=== PATIENT | female | born 1945 | race Caucasian/White ===

== ENCOUNTER → 2018-01-23 15:11 | Outpatient (CLI) | payer MEDICARE, OTHER, SELFPAY ==
--- NOTE | 2018-01-23 | DI.MG.S_ITS ---
BILATERAL DIGITAL SCREENING MAMMOGRAM 3D/2D WITH CAD: 01/23/2018 CLINICAL: Routine screening. Family history of breast cancer. Comparison is made to exams dated: 12/27/2016 mammogram, 12/06/2015 mammogram, and 11/16/2014 mammogram - [facility]. The tissue of both breasts is extremely dense, which lowers the sensitivity of mammography. Current study was also evaluated with a Computer Aided Detection (CAD) system. No significant masses, calcifications, or other findings are seen in either breast. There has been no significant interval change. IMPRESSION: NEGATIVE There is no mammographic evidence of malignancy. A 1 year screening mammogram is recommended. This exam was interpreted at Station ID: [id number]. NOTE: For mammograms, a report in lay terms will be sent to the patient. Approximately 15% of breast malignancies will not be visualized mammographically. In the management of a palpable breast mass, a negative mammogram must not discourage biopsy of a clinically suspicious lesion. Electronically Signed By: Chelo márquez/teresa:01/23/2018 15:37:21 letter sent: Normal Exam ACR BI-RADS Category 1: Negative [id number]
== END ==
PROVIDERS: PCP Family Medicine; Visit Provider Family Medicine
DX: Z12.31 Encounter for screening mammogram for malignant neoplasm of breast (principal); Z80.3 Family history of malignant neoplasm of breast
CPT/HCPCS: 77063; 77067

== ENCOUNTER → 2018-12-16 07:38 | Outpatient (CLI) | payer MEDICARE, OTHER, SELFPAY ==
[2018-12-16 08:45] LABS: Add Manual Diff / Slide Review NO; Basophils Absolute Auto 0 /uL (0-100); Basophils Percent Auto 0.7 % (0-2); Eosinophils Absolute Auto 100 /uL (0-450); Eosinophils Percent Auto 2.4 % (2-4); Hematocrit 39.3 % (36-46); Hemoglobin 13.8 g/dL (12.0-16.0); Lymphocytes Absolute Auto 1600 /uL (1100-4500); Lymphocytes Percent Auto 45.9 % (25-40); Mean Corpuscular Hemoglobin 31.4 PG (26-34); Mean Corpuscular Volume 89.7 fL (80-100); Monocytes Absolute Auto 400 /uL (0-900); Monocytes Percent Auto 11.5 % (3-14); Neutrophils Absolute Auto 1400 /uL (1500-7000); Neutrophils Percent Auto 39.5 % (50-75); Platelet Count 200 X10^3/uL (150-400); Red Blood Cell Count 4.39 X10^6/uL (4.0-5.2); Red Cell Distribution Width 13.1 % (11.6-14.8); White Blood Cell Count 3.5 X10^3/uL (4.5-11.0)
[2018-12-16 08:55] LABS: Alanine Aminotransferase 14 IU/L (9-52); Albumin 4.3 g/dL (3.5-5.0); Albumin Globulin Ratio 1.5 (1.0-2.8); Alkaline Phosphatase 53 U/L (38-126); Aspartate Aminotransferase 27 IU/L (14-36); BUN Creatinine Ratio 22.9 (6-22); Bilirubin Total 1.3 mg/dL (0.2-1.3); Blood Urea Nitrogen 16 mg/dL (7-17); Calcium 9.6 mg/dL (8.4-10.2); Carbon Dioxide 32 mmol/L (22-32); Chloride 104 mmol/L (98-107); Cholesterol 194 mg/dL (140-199); Estimated Glomerular Filt Rate > 60.0 mL/min (>60); Globulin 2.9 g/dL (1.7-4.1); Glucose 86 mg/dL (80-110); HDL Cholesterol 64 mg/dL (40-60); HEMOLYSIS < 15 (0-50); LDL Cholesterol Calculated 110 mg/dL (<100); Sodium 141 mmol/L (137-145); Total Protein 7.2 g/dL (6.3-8.2); Triglycerides 100 mg/dL (35-150)
[2018-12-16 09:48] LABS: HEMOLYSIS 18 (0-50); Iron 122 ug/dL (37-170)
[2018-12-16 10:00] LABS: Percent Iron Saturation 50 % (15-50); Total Iron Binding Capacity 245 ug/dL (265-497); Transferrin 204 mg/dL (206-381)
== END ==
PROVIDERS: PCP Family Medicine; Visit Provider Family Medicine
DX: E78.5 Hyperlipidemia, unspecified (principal); G31.84 Mild cognitive impairment of uncertain or unknown etiology; M81.0 Age-related osteoporosis without current pathological fracture; Z86.2 Personal history of diseases of the blood and blood-forming organs and certain disorders involving the immune mechanism
CPT/HCPCS: 36415; 80053; 80061; 82728; 83540; 83550; 85025

== ENCOUNTER → 2019-02-12 13:57 | Outpatient (CLI) | payer MEDICARE, OTHER, SELFPAY ==
[2019-02-12 14:26] LABS: Add Manual Diff / Slide Review NO; Basophils Absolute Auto 0 /uL (0-100); Basophils Percent Auto 0.2 % (0-2); Eosinophils Absolute Auto 0 /uL (0-450); Eosinophils Percent Auto 0.1 % (2-4); Hematocrit 39.5 % (36-46); Hemoglobin 13.3 g/dL (12.0-16.0); Lymphocytes Absolute Auto 1400 /uL (1100-4500); Lymphocytes Percent Auto 13.4 % (25-40); Mean Corpuscular HGB Conc 33.7 % (30-36); Mean Corpuscular Hemoglobin 30.7 PG (26-34); Monocytes Absolute Auto 700 /uL (0-900); Monocytes Percent Auto 7.1 % (3-14); Neutrophils Absolute Auto 8100 /uL (1500-7000); Neutrophils Percent Auto 79.2 % (50-75); Platelet Count 223 X10^3/uL (150-400); Red Blood Cell Count 4.34 X10^6/uL (4.0-5.2); Red Cell Distribution Width 13.7 % (11.6-14.8); White Blood Cell Count 10.2 X10^3/uL (4.5-11.0)
[2019-02-12 14:49] LABS: Erythrocyte Sedimentation Rate 39 MM/HR (0-20)
[2019-02-12 15:13] LABS: Alanine Aminotransferase 20 IU/L (9-52); Albumin 4.6 g/dL (3.5-5.0); Albumin Globulin Ratio 1.5 (1.0-2.8); Alkaline Phosphatase 68 U/L (38-126); Aspartate Aminotransferase 26 IU/L (14-36); BUN Creatinine Ratio 22.9 (6-22); Bilirubin Total 1.9 mg/dL (0.2-1.3); Blood Urea Nitrogen 16 mg/dL (7-17); C-Reactive Protein Quant 6.3 mg/dL (<1.0); Carbon Dioxide 29 mmol/L (22-32); Chloride 100 mmol/L (98-107); Estimated Glomerular Filt Rate > 60.0 mL/min (>60); Glucose 89 mg/dL (80-110); HEMOLYSIS < 15 (0-50); Sodium 139 mmol/L (137-145); Total Protein 7.6 g/dL (6.3-8.2)
[2019-02-12 15:38] LABS: TSH w/ Reflex to FT4 0.62 uIU/mL (0.47-4.68)
== END ==
PROVIDERS: PCP Family Medicine; Visit Provider Family Medicine
DX: R50.9 Fever, unspecified (principal)
CPT/HCPCS: 36415; 80053; 84443; 85025; 85651; 86140

== ENCOUNTER → 2019-02-17 10:40 | Outpatient (CLI) | payer MEDICARE, OTHER, SELFPAY ==
--- NOTE | 2019-02-17 | DI.MG.S_ITS ---
BILATERAL DIGITAL SCREENING MAMMOGRAM 3D/2D WITH CAD: 02/17/2019 CLINICAL: Routine screening. Family history of breast cancer. Comparison is made to exams dated: 01/23/2018 mammogram, 12/27/2016 mammogram, and 12/06/2015 mammogram - [facility]. The tissue of both breasts is extremely dense, which lowers the sensitivity of mammography. Current study was also evaluated with a Computer Aided Detection (CAD) system. No significant masses, calcifications, or other findings are seen in either breast. There has been no significant interval change. IMPRESSION: NEGATIVE There is no mammographic evidence of malignancy. A 1 year screening mammogram is recommended. This exam was interpreted at Station ID: [id number]. NOTE: For mammograms, a report in lay terms will be sent to the patient. Approximately 15% of breast malignancies will not be visualized mammographically. In the management of a palpable breast mass, a negative mammogram must not discourage biopsy of a clinically suspicious lesion. Electronically Signed By: Ray wills/teresa:02/17/2019 15:27:45 letter sent: Normal Exam ACR BI-RADS Category 1: Negative [id number]
== END ==
PROVIDERS: PCP Family Medicine; Visit Provider Family Medicine
DX: Z13.21 Encounter for screening for nutritional disorder (principal); Z80.3 Family history of malignant neoplasm of breast
CPT/HCPCS: 77063; 77067

== ENCOUNTER → 2019-03-19 12:38 | Outpatient (CLI) | payer MEDICARE, OTHER, SELFPAY ==
[2019-03-19 13:20] LABS: Add Manual Diff / Slide Review NO; Basophils Absolute Auto 0 /uL (0-100); Basophils Percent Auto 0.5 % (0-2); Eosinophils Absolute Auto 0 /uL (0-450); Eosinophils Percent Auto 0.2 % (2-4); Hematocrit 41.4 % (36-46); Hemoglobin 13.7 g/dL (12.0-16.0); Lymphocytes Absolute Auto 1200 /uL (1100-4500); Lymphocytes Percent Auto 19.5 % (25-40); Mean Corpuscular HGB Conc 33.1 % (30-36); Mean Corpuscular Hemoglobin 30.3 PG (26-34); Mean Corpuscular Volume 91.5 fL (80-100); Monocytes Absolute Auto 300 /uL (0-900); Monocytes Percent Auto 4.6 % (3-14); Neutrophils Absolute Auto 4700 /uL (1500-7000); Neutrophils Percent Auto 75.2 % (50-75); Platelet Count 253 X10^3/uL (150-400); Red Blood Cell Count 4.52 X10^6/uL (4.0-5.2); Red Cell Distribution Width 13.7 % (11.6-14.8); White Blood Cell Count 6.3 X10^3/uL (4.5-11.0)
[2019-03-19 13:33] LABS: Erythrocyte Sedimentation Rate 4 MM/HR (0-20)
[2019-03-19 13:42] LABS: Creatine Kinase 45 U/L (30-135)
[2019-03-19 13:47] LABS: C-Reactive Protein Quant < 0.5 mg/dL (<1.0)
[2019-03-22 17:09] LABS: Hepatitis B Surface Antigen NEGATIVE s/c (NEGATIVE)
== END ==
PROVIDERS: PCP Family Medicine; Visit Provider Family Medicine
DX: M35.3 Polymyalgia rheumatica (principal)
CPT/HCPCS: 36415; 82550; 85025; 85651; 86140; 87340

== ENCOUNTER → 2019-04-07 10:02 | Outpatient (CLI) | payer MEDICARE, OTHER, SELFPAY ==
[2019-04-07 11:50] LABS: Hep C Virus Ab w/Reflex Quant NEGATIVE s/c (NEGATIVE)
== END ==
PROVIDERS: PCP Family Medicine; Visit Provider Family Medicine
DX: M35.3 Polymyalgia rheumatica (principal)
CPT/HCPCS: 36415; 86803

== ENCOUNTER → 2019-09-08 09:32 | Outpatient (CLI) | payer MEDICARE, OTHER, SELFPAY ==
[2019-09-08 10:44] LABS: Add Manual Diff / Slide Review NO; Basophils Absolute Auto 0 /uL (0-100); Basophils Percent Auto 0.6 % (0-2); Eosinophils Absolute Auto 0 /uL (0-450); Eosinophils Percent Auto 0.9 % (2-4); Hematocrit 41.6 % (36-46); Hemoglobin 13.7 g/dL (12.0-16.0); Lymphocytes Absolute Auto 1700 /uL (1100-4500); Lymphocytes Percent Auto 45.4 % (25-40); Mean Corpuscular HGB Conc 32.9 % (30-36); Mean Corpuscular Volume 91.3 fL (80-100); Monocytes Absolute Auto 300 /uL (0-900); Monocytes Percent Auto 8.9 % (3-14); Neutrophils Absolute Auto 1600 /uL (1500-7000); Neutrophils Percent Auto 44.2 % (50-75); Platelet Count 230 X10^3/uL (150-400); Red Blood Cell Count 4.56 X10^6/uL (4.0-5.2); Red Cell Distribution Width 13.6 % (11.6-14.8); White Blood Cell Count 3.7 X10^3/uL (4.5-11.0)
[2019-09-08 11:02] LABS: Alanine Aminotransferase 16 IU/L (<35); Albumin 4.6 g/dL (3.5-5.0); Albumin Globulin Ratio 1.5 (1.0-2.8); Alkaline Phosphatase 48 U/L (38-126); Aspartate Aminotransferase 29 IU/L (14-36); Bilirubin Total 1.3 mg/dL (0.2-1.3); Blood Urea Nitrogen 20 mg/dL (7-17); Calcium 10.1 mg/dL (8.4-10.2); Carbon Dioxide 30 mmol/L (22-32); Chloride 103 mmol/L (98-107); Estimated Glomerular Filt Rate > 60.0 mL/min (>60); Glucose 106 mg/dL (80-110); HEMOLYSIS < 15 (0-50); Potassium 4.5 mmol/L (3.4-5.1); Sodium 139 mmol/L (137-145); Total Protein 7.6 g/dL (6.3-8.2)
== END ==
PROVIDERS: PCP Family Medicine; Referring Provider Family Medicine; Visit Provider Family Medicine
DX: M31.6 Other giant cell arteritis (principal); M35.3 Polymyalgia rheumatica; Z86.2 Personal history of diseases of the blood and blood-forming organs and certain disorders involving the immune mechanism
CPT/HCPCS: 36415; 80053; 85025

== ENCOUNTER 2019-10-23 08:04 | Emergency (ER) | payer MEDICARE, OTHER, SELFPAY ==
[2019-10-23 08:06] VITALS: BP 140/76; PULSE 62; RESP 18; TEMP 36.8; O2SAT 99; BMI 19.7
--- NOTE | 2019-10-23 08:32 | DI.CT.S_ITS ---
PROCEDURE: CT ABDOMEN PELVIS W CON INDICATIONS: abd pain TECHNIQUE: After the administration of oral and intravenous contrast, 5 mm thick sections acquired from the diaphragms to the symphysis. 5 mm thick coronal and sagittal reformats were performed. For radiation dose reduction, the following was used: automated exposure control, adjustment of mA and/or kV according to patient size. COMPARISON: [facility], CT, ABDOMEN/PELVIS WITH CONTRAST, 08/22/2010, 11:36. FINDINGS: Image quality: Diagnostic. ABDOMEN: Lung bases: Lung bases are clear. Heart size is normal. Solid organs: The liver is normal in size. There is a small area of low attenuation that has a thick appearance and is located within the left hepatic lobe at the level of the falciform ligament, most likely representing a small area of fatty infiltration. No intrahepatic or extrahepatic biliary dilatation is identified. The portal vein is patent. The pancreas is within normal limits. However, there is mild prominence of the main pancreatic duct, which is similar to the previous examination. No definite lesions are appreciated. No surrounding inflammation is evident. The adrenals and spleen are within normal limits. The kidneys are normal in size. There is prominence of the bilateral renal collecting systems and proximal ureters. However, the more distal aspects of the ureters are nondilated. No obvious renal calculi are evident. Peritoneum and bowel: Prominence of the wall of the stomach probably is exaggerated by decompression. There is also prominence of the wall of the duodenum and the proximal aspects of the jejunum with a few small bowel loops within the left upper quadrant noted to be borderline prominent in size measuring up to 2.7 cm in diameter (image 41, series 2). A moderate amount of stool is identified throughout the colon. There is extensive colonic diverticulosis. There is questionable edema within the mesentery adjacent to the region of sigmoid diverticulosis. However, there is bowel is not well evaluated without intraluminal contrast. Previously noted area of wall thickening involving the descending colon is not readily apparent on the current study. There is no free fluid, loculated fluid collection, or free air. Nodes and vessels: No retroperitoneal or mesenteric adenopathy. Aorta and inferior vena cava are normal in caliber. Aortic atherosclerosis is present. A retroaortic left renal vein is incidentally noted. Bones: No acute fracture or suspicious osseous lesion is evident. PELVIS: Genitourinary: Bladder wall thickness is normal. Miscellaneous: No inguinal hernias or adenopathy. No free fluid or loculated fluid collections are evident. The uterus is surgically absent. The ovaries are not identified and may also be surgically absent. Bones: No suspicious bony lesions. No acute pelvic fractures are identified. IMPRESSION: 1. Wall thickening of the stomach and proximal small bowel is nonspecific and may be exaggerated by incomplete distention. However, these findings are suspicious for gastroenteritis and clinical correlation is recommended. 2. There may be focal ileus within the small bowel loops of the left upper quadrant. There is no bowel obstruction. 3. Extensive colonic diverticulosis with questionable edema of the mesentery of the distal colon is nonspecific and probably within normal limits. Clinical correlation to exclude early diverticulitis is recommended. 3. Mild prominence of the main pancreatic duct is similar to the exam from 2011 and probably related to a benign process. No definitive pancreatic mass is evident. Dictated by: Dany Colon M.D. on 10/23/2019 at 8:23 Approved by: Dany Colon M.D. on 10/23/2019 at 8:30
--- NOTE | 2019-10-23 08:39 | ED_ITS ---
HPI - Abdominal Pain General Chief Complaint: Abdominal Pain Stated Complaint: chronic Diverticulitis Time Seen by Provider: 10/23/19 08:17 Source: patient and family Mode of arrival: Ambulatory Limitations: no limitations History of Present Illness HPI narrative: Patient here for complaints 2 weeks lower abdominal achy pain 08/30. Constant. Does not radiate. No nausea or vomiting. No diarrhea. Last bowel movement 1 week ago. During this time she did have black stools. No bright red blood per rectum. No dizziness no dyspnea no palpitations no chest pain no back pain no urinary complaints. Never been admitted for diverticulitis in the past. Last colonoscopy about 3 years ago. History of colon polyps. No weight loss or night sweats. Denies any epigastric pain. Pain is bilateral lower abdomen. She did take home antibiotic that was left over, Flagyl and Cipro for 1 week at the beginning. Has been off these medications for the past 1 week. Patient does take daily baby aspirin Related Data Home Medications Medication Instructions Recorded Confirmed aspirin 81 mg tablet,delayed 81 mg PO DAILY 09/23/18 10/23/19 release psyllium husk PO 09/23/18 04/08/19 vitamin B complex 1 tab PO DAILY 09/23/18 04/08/19 Previous Rx's Medication Instructions Recorded donepezil 10 mg tablet 10 mg PO BEDTIME #90 tab 04/22/19 simvastatin 5 mg tablet 5 mg PO HS #90 tab 04/22/19 trazodone 50 mg tablet 25 mg PO BEDTIME PRN #30 tab 04/22/19 ciprofloxacin HCl 500 mg tablet 500 mg PO BID #14 tab 07/12/19 metronidazole 500 mg tablet 500 mg PO Q8H #21 tab 07/12/19 ciprofloxacin HCl [Cipro] 500 mg PO BID #14 tab 10/23/19 metronidazole [Flagyl] 500 mg PO TID #21 tab 10/23/19 Allergies Allergy/AdvReac Type Severity Reaction Status Date / Time amoxicillin [AMOXICILLIN] Allergy Mild HIVES Verified 10/23/19 08:19 clavulanic acid Allergy Mild HIVES Verified 10/23/19 08:19 [CLAVULANIC ACID] Penicillins Allergy Hives Verified 10/23/19 08:19 Review of Systems Review of Systems Narrative: GENERAL: Denies chills, fatigue, malaise, fever, sweats. HEENT: Denies sinus pain, ear pain, sore throat, difficulty swallowing, dizziness. RESPIRATORY: Denies dyspnea, cough, wheezing, hemoptysis, sputum. CARDIOVASCULAR: Denies chest pain, palpitations, orthopnea, edema, GASTROINTESTINAL: Denies nausea, vomiting, denies any diarrhea. No right bright blood per rectum. Has dark stools. No bowel movement 1 week. : Denies dysuria, frequency, incontinence, hematuria, urinary retention. MUSCULOSKELETAL: denies weakness, joint pain, or bony pain SKIN: Denies rash, skin lesions, or other NEUROLOGIC: Denies weakness, headache, numbness, change in speech, confusion, seizures, incoordination. PSYCHIATRIC: No concerning psychosocial issues. 12 point review of systems is negative except for those stated above ROS Unobtainable: All systems reviewed & are unremarkable except as noted in HPI and below Patient History Medical History Anemia (Chronic 2012) Cataract (Resolved ~2008) Chicken pox (Resolved) Colon polyps (Resolved 2010) Diverticular disease (Chronic ~1999) History of 1 spontaneous (Resolved) History of live (Resolved) Left wrist fracture (Resolved 2003) Measles (Resolved) Osteopenia (Chronic 2005) Osteoporosis (Chronic 2012) Retinal tear (Resolved 2011) Seizures, post-traumatic (Resolved 1979) Traumatic brain injury (Resolved 1979) Family History (Updated 02/19/19 @ 14:12 by Zenaida Brar DO) Brother Age: 75 Multiple myeloma Amyloidosis Cancer High cholesterol ESRD (end stage renal disease) on dialysis Brother Age: 63 Hypertension High cholesterol Child Fibromyalgia Cancer Breast cancer Father Hyperlipidemia Cancer Mesothelioma Grandmother Dementia Mother Age: 96 Alzheimer's dementia Heart disease High cholesterol Osteoporosis Grandfather Alcohol use disorder Family/Other No problems noted. Family/Other Diverticulitis large intestine Daughter Age: 51 Cancer Social History marital status: details: ale Taveras, lives in [place] household members: spouse lives independently: Yes caregiver/support person: No housing: house Smoking Status: Never smoker Smoking Status: Never smoker Alcohol type: wine Substance Use Type: does not use Exam Narrative Exam Narrative: GENERAL: [] year old patient appears stated age. Well-nourished, well-developed patient, in no distress, not toxic in gown HEAD: Atraumatic. Normocephalic. EYES: Pupils equal round and reactive. Extraocular motions intact. No scleral icterus. No injection or drainage. ENT: Nose without bleeding, purulent drainage. Throat without erythema, tonsi llar hypertrophy or exudate. Airway patent. NECK: Trachea midline. Non tender CARDIOVASCULAR: Regular rate and rhythm without murmurs, gallops, or rubs. RESPIRATORY: Clear to auscultation. Breath sounds equal bilaterally. No wheezes, rales, or rhonchi. GASTROINTESTINAL: Abdomen soft, mild lower bilateral abdominal tenderness. No peritoneal signs., nondistended. EXTREMITIES: No edema or joint tenderness. BACK: Nontender without deformity or crepitance. No flank tenderness. NEURO: AOx3. SKIN: No rash or erythema of visible areas Initial Vital Signs Initial Vital Signs: Vital Signs Temperature 98.3 F 10/23/19 08:06 Pulse Rate 62 10/23/19 08:06 Respiratory Rate 18 10/23/19 08:06 Blood Pressure 140/76 10/23/19 08:06 Pulse Oximetry 99 10/23/19 08:06 Course Course Course Narrative: Not talk during stay. Does not want anything for pain. Orders Ordered: ED Orders 10/23/19 08:20 Complete Blood Count AUTO DIFF Stat Comprehensive Metabolic Panel Stat Partial Thromboplastin Time Stat Prothrombin Time INR Stat 10/23/19 08:32 CT abdomen pelvis w con Stat Discontinued Medications Ciprofloxacin (Cipro) 500 mg PO NOW ONE Stop: 10/23/19 09:44 Last Admin: 10/23/19 10:03 Dose: 500 mg Documented by: MEISENB Sodium Chloride (Normal Saline 0.9%) 500 mls @ 1,000 mls/hr IV BOLUS ONE Stop: 10/23/19 08:56 Last Admin: 10/23/19 09:24 Dose: Not Given Documented by: MEISENB Sodium Chloride (Normal Saline 0.9%) 1,000 mls @ 1,000 mls/hr IV BOLUS ONE Stop: 10/23/19 10:19 Last Infusion: 10/23/19 11:17 Dose: 0 mls/hr Documented by: Admin: 10/23/19 09:22 Dose: 1,000 mls/hr Documented by: MEISENB Metronidazole (Flagyl) 500 mg in 100 mls @ 100 mls/hr IV NOW ONE Stop: 10/23/19 10:42 Last Infusion: 10/23/19 11:17 Dose: 0 mls/hr Documented by: Admin: 10/23/19 10:03 Dose: 100 mls/hr Documented by: LADAN Reevaluation(s) Reevaluation #1: Time 11:17 a.m.. Not toxic at discharge. No black stools/BM here. Patient and desire discharge home Vital Signs Vital signs: Vital Signs - 8 hr 10/23/19 08:06 10/23/19 09:20 10/23/19 09:57 Temperature 98.3 F Pulse Rate 62 57 L 66 Respiratory Rate 18 16 18 Blood Pressure 140/76 Blood Pressure [Left Arm] 173/90 H 147/66 H Pulse Oximetry 99 100 99 10/23/19 11:18 Temperature Pulse Rate 62 Respiratory Rate 18 Blood Pressure Blood Pressure [Left Arm] 141/67 H Pulse Oximetry 97 MDM - Abdominal Pain Differential Diagnosis Differential diagnosis: Likely abdominal pain, constipation, diverticulitis and other (Gastritis/upper abdominal bleed) Lab Data Attestation: I reviewed the patient's lab results. Result diagrams: 10/23/19 08:20 10/23/19 08:20 Labs: Lab Results 10/23/19 10/23/19 10/23/19 Range/Units 08:20 08:20 08:20 WBC 9.7 (4.5-11.0) X10^3/uL RBC 4.55 (4.0-5.2) X10^6/uL Hgb 13.8 (12.0-16.0) g/dL Hct 41.0 (36-46) % MCV 90.1 (80-100) fL MCH 30.3 (26-34) PG MCHC 33.7 (30-36) % RDW 13.5 (11.6-14.8) % Plt Count 278 (150-400) X10^3/uL Neut % (Auto) 77.5 H (50-75) % Lymph % (Auto) 13.2 L (25-40) % [place] % (Auto) 8.3 (3-14) % Eos % (Auto) 0.5 L (2-4) % Baso % (Auto) 0.5 (0-2) % Neut # (Auto) 7500 H (8661-4318) /uL Lymph # (Auto) 1300 (1375-1893) /uL [place] # (Auto) 800 (0-900) /uL Eos # (Auto) 0 (0-450) /uL Baso # (Auto) 0 (0-100) /uL PT 12.0 (10.1-12.7) SECONDS INR 1.0 (0.9-1.3) APTT 29 (26.4-36.2) SECONDS Sodium 138 (137-145) mmol/L Potassium 3.8 (3.4-5.1) mmol/L Chloride 102 (98-107) mmol/L Carbon Dioxide 29 (22-32) mmol/L BUN 15 (7-17) mg/dL Creatinine 0.71 (0.52-1.04) mg/dL Estimated GFR > 60.0 (>60) mL/min BUN/Creatinine Ratio 21.1 (6-22) Glucose 117 H (80-110) mg/dL Calcium 9.6 (8.4-10.2) mg/dL Total Bilirubin 1.3 (0.2-1.3) mg/dL AST 33 (14-36) IU/L ALT 20 (<35) IU/L Alkaline Phosphatase 63 (38-126) U/L Total Protein 7.9 (6.3-8.2) g/dL Albumin 4.5 (3.5-5.0) g/dL Globulin 3.4 (1.7-4.1) g/dL Albumin/Globulin Ratio 1.3 (1.0-2.8) Point of care testing: Urine Dip Bedside Urine Glucose Negative Bedside Urine Bilirubin - Negative Bedside Urine Ketone - Negative Urine Specific [place] 1.010 Bedside Urine Occult Blood - Negative Bedside Urine pH 6.5 Bedside Urine Protein - Negative Bedside Urine Urobilinogen - Negative Bedside Urine Nitrite - Negative Imaging Data CT scan - abdomen/pelvis: Radiologist's Impression: [address] [id number] [address] Scan Report Signed Patient: Vandana Aguirre LMR#: [id number] : 6Acct:[id number] Age/Sex: 73 / FDate of Service: 10/23/19 Loc: ED Accession Number: [id number] Procedure: CT abdomen pelvis w con Ordering Provider: Nik Estrada MD PROCEDURE: CT ABDOMEN PELVIS W CON INDICATIONS: abd pain TECHNIQUE: After the administration of oral and intravenous contrast, 5 mm thick sections acquired from the diaphragms to the symphysis. 5 mm thick coronal and sagittal reformats were performed. For radiation dose reduction, the following was used: automated exposure control, adjustment of mA and/or kV according to patient size. COMPARISON: [facility], CT, ABDOMEN/PELVIS WITH CONTRAST, 08/22/2010, 11:36. FINDINGS: Image quality: Diagnostic. ABDOMEN: Lung bases: Lung bases are clear. Heart size is normal. Solid organs: The liver is normal in size. There is a small area of low attenuation that has a thick appearance and is located within the left hepatic lobe at the level of the falciform ligament, most likely representing a small area of fatty infiltration. No intrahepatic or extrahepatic biliary dilatation is identified. The portal vein is patent. The pancreas is within normal limits. However, there is mild prominence of the main pancreatic duct, which is similar to the previous examination. No definite lesions are appreciated. No surrounding inflammation is evident. The adrenals and spleen are within normal limits. The kidneys are normal in size. There is prominence of the bilateral renal collecting systems and proximal ureters. However, the more distal aspects of the ureters are nondilated. No obvious renal calculi are evident. Peritoneum and bowel: Prominence of the wall of the stomach probably is exaggerated by decompression. There is also prominence of the wall of the duodenum and the proximal aspects of the jejunum with a few small bowel loops within the left upper quadrant noted to be borderline prominent in size measuring up to 2.7 cm in diameter (image 41, series 2). A moderate amount of stool is identified throughout the colon. There is extensive colonic diverticulosis. There is questionable edema within the mesentery adjacent to the region of sigmoid diverticulosis. However, there is bowel is not well evaluated without intraluminal contrast. Previously noted area of wall thickening involving the descending colon is not readily apparent on the current study. There is no free fluid, loculated fluid collection, or free air. Nodes and vessels: No retroperitoneal or mesenteric adenopathy. Aorta and inferior vena cava are normal in caliber. Aortic atherosclerosis is present. A retroaortic left renal vein is incidentally noted. Bones: No acute fracture or suspicious osseous lesion is evident. PELVIS: Genitourinary: Bladder wall thickness is normal. Miscellaneous: No inguinal hernias or adenopathy. No free fluid or loculated fluid collections are evident. The uterus is surgically absent. The ovaries are not identified and may also be surgically absent. Bones: No suspicious bony lesions. No acute pelvic fractures are identified. IMPRESSION: 1. Wall thickening of the stomach and proximal small bowel is nonspecific and may be exaggerated by incomplete distention. However, these findings are suspicious for gastroenteritis and clinical correlation is recommended. 2. There may be focal ileus within the small bowel loops of the left upper quadrant. There is no bowel obstruction. 3. Extensive colonic diverticulosis with questionable edema of the mesentery of the distal colon is nonspecific and probably within normal limits. Clinical correlation to exclude early diverticulitis is recommended. 3. Mild prominence of the main pancreatic duct is similar to the exam from 2011 and probably related to a benign process. No definitive pancreatic mass is evident. Dictated by: Dany Colon M.D. on 10/23/2019 at 8:23 Approved by: Dany Colon M.D. on 10/23/2019 at 8:30 MDM Narrative Medical decision making narrative: Patient does have a family physician and is scheduled to update her colonoscopy. Reviewed patient will need endoscopy of the stomach as well as colonoscopy. No tachycardia no hypotension no hypoxia. Patient is not on a beta-leila. No rectal exam indicates this time. Hemoglobin reviewed. Is not anemic. baseline level compared to previous CBCs blood pressure improved 147/66 Discharge Plan Departure Patient Disposition: Home Clinical Impression: Diverticulosis of colon, Diverticulitis, Gastroenteritis Constipation Qualifiers: Constipation type: unspecified constipation type Qualified Code(s): K59.00 - Constipation, unspecified Discharge Date/Time: 10/23/19 11:23 Instructions: Diverticulitis, DI for Constipation Activity Restrictions/Additional Instructions: See family doctor next week for recheck. Keep well hydrated. May take over-t he-counter laxative for constipation. Will need to schedule for colonoscopy as well as endoscopy of the stomach. Return if worse Prescriptions: New metronidazole [Flagyl] 500 mg tablet 500 mg PO TID Qty: 21 RF: 0 ciprofloxacin HCl [Cipro] 500 mg tablet 500 mg PO BID Qty: 14 RF: 0 No Action simvastatin 5 mg tablet 5 mg PO HS Qty: 90 RF: 3 trazodone 50 mg tablet 25 mg PO BEDTIME PRN (Reason: sleep maintenence insomnia) Qty: 30 RF: 3 donepezil 10 mg tablet 10 mg PO BEDTIME Qty: 90 RF: 3 ciprofloxacin HCl 500 mg tablet 500 mg PO BID Qty: 14 RF: 0 metronidazole 500 mg tablet 500 mg PO Q8H Qty: 21 RF: 0 aspirin [Adult Low Dose Aspirin] 81 mg tablet,delayed release (DR/EC) 81 mg PO DAILY RF: 0 vitamin B complex [B Complex-Vitamin B12] tablet 1 tab PO DAILY RF: 0 psyllium husk PO RF: 0 Referrals: Zenaida Brar DO [Primary Care Provider] -
[2019-10-23 08:47] LABS: Add Manual Diff / Slide Review NO; Basophils Absolute Auto 0 /uL (0-100); Basophils Percent Auto 0.5 % (0-2); Eosinophils Absolute Auto 0 /uL (0-450); Eosinophils Percent Auto 0.5 % (2-4); Hemoglobin 13.8 g/dL (12.0-16.0); Lymphocytes Absolute Auto 1300 /uL (1100-4500); Lymphocytes Percent Auto 13.2 % (25-40); Mean Corpuscular HGB Conc 33.7 % (30-36); Mean Corpuscular Hemoglobin 30.3 PG (26-34); Mean Corpuscular Volume 90.1 fL (80-100); Monocytes Absolute Auto 800 /uL (0-900); Monocytes Percent Auto 8.3 % (3-14); Neutrophils Absolute Auto 7500 /uL (1500-7000); Neutrophils Percent Auto 77.5 % (50-75); Platelet Count 278 X10^3/uL (150-400); Red Blood Cell Count 4.55 X10^6/uL (4.0-5.2); Red Cell Distribution Width 13.5 % (11.6-14.8); White Blood Cell Count 9.7 X10^3/uL (4.5-11.0)
[2019-10-23 08:49] LABS: PTT Partial Thromboplastin Tim 29 SECONDS (26.4-36.2)
[2019-10-23 08:51] LABS: Alanine Aminotransferase 20 IU/L (<35); Albumin 4.5 g/dL (3.5-5.0); Albumin Globulin Ratio 1.3 (1.0-2.8); Alkaline Phosphatase 63 U/L (38-126); Aspartate Aminotransferase 33 IU/L (14-36); BUN Creatinine Ratio 21.1 (6-22); Bilirubin Total 1.3 mg/dL (0.2-1.3); Blood Urea Nitrogen 15 mg/dL (7-17); Calcium 9.6 mg/dL (8.4-10.2); Carbon Dioxide 29 mmol/L (22-32); Chloride 102 mmol/L (98-107); Estimated Glomerular Filt Rate > 60.0 mL/min (>60); Globulin 3.4 g/dL (1.7-4.1); Glucose 117 mg/dL (80-110); HEMOLYSIS < 15 (0-50); Potassium 3.8 mmol/L (3.4-5.1); Sodium 138 mmol/L (137-145); Total Protein 7.9 g/dL (6.3-8.2)
[2019-10-23 09:20] VITALS: BP 173/90; PULSE 57; RESP 16; O2SAT 100
[2019-10-23] MEDS: SODIUM CHLORIDE 0.9% 1,000 ML 1000 ML IV (09:22)
[2019-10-23 09:57] VITALS: BP 147/66; PULSE 66; RESP 18; O2SAT 99
[2019-10-23] MEDS: metroNIDAZOLE 500 MG/100 ML PIGGYBACK 100 MG IV (10:03)
[2019-10-23] MEDS: CIPROFLOXACIN 500 MG TABLET PO (10:03)
[2019-10-23 11:18] VITALS: BP 141/67; PULSE 62; RESP 18; O2SAT 97
== END 2019-10-23 11:23 | disposition home or self-care (01) ==
PROVIDERS: Emergency Provider Emergency Medicine; PCP Family Medicine
DX: K57.30 Diverticulosis of large intestine without perforation or abscess without bleeding (principal); K57.92 Diverticulitis of intestine, part unspecified, without perforation or abscess without bleeding; K52.9 Noninfective gastroenteritis and colitis, unspecified; K59.00 Constipation, unspecified
CPT/HCPCS: 36415; 74177; 80053; 81003; 85025; 85610; 85730; 96365; 99284; 99285; Q9967

== ENCOUNTER → 2019-12-29 11:32 | Outpatient (CLI) | payer MEDICARE, OTHER, SELFPAY ==
[2019-12-29 11:50] LABS: Add Manual Diff / Slide Review NO; Basophils Absolute Auto 0 /uL (0-100); Basophils Percent Auto 0.5 % (0-2); Eosinophils Absolute Auto 0 /uL (0-450); Eosinophils Percent Auto 0.5 % (2-4); Hematocrit 41.9 % (36-46); Hemoglobin 14.1 g/dL (12.0-16.0); Lymphocytes Absolute Auto 1600 /uL (1100-4500); Lymphocytes Percent Auto 35.3 % (25-40); Mean Corpuscular HGB Conc 33.7 % (30-36); Mean Corpuscular Hemoglobin 30.7 PG (26-34); Monocytes Absolute Auto 500 /uL (0-900); Monocytes Percent Auto 10.8 % (3-14); Neutrophils Absolute Auto 2300 /uL (1500-7000); Neutrophils Percent Auto 52.9 % (50-75); Platelet Count 279 X10^3/uL (150-400); Red Cell Distribution Width 13.7 % (11.6-14.8); White Blood Cell Count 4.4 X10^3/uL (4.5-11.0)
[2019-12-29 12:33] LABS: Alanine Aminotransferase 23 IU/L (<35); Albumin 4.5 g/dL (3.5-5.0); Albumin Globulin Ratio 1.7 (1.0-2.8); Alkaline Phosphatase 49 U/L (38-126); Amylase 109 U/L (30-110); Aspartate Aminotransferase 42 IU/L (14-36); BUN Creatinine Ratio 14.3 (6-22); Bilirubin Total 0.6 mg/dL (0.2-1.3); Blood Urea Nitrogen 12 mg/dL (7-17); Calcium 10.2 mg/dL (8.4-10.2); Carbon Dioxide 30 mmol/L (22-32); Chloride 102 mmol/L (98-107); Estimated Glomerular Filt Rate > 60.0 mL/min (>60); Globulin 2.6 g/dL (1.7-4.1); Glucose 105 mg/dL (80-110); HEMOLYSIS < 15 (0-50); Lipase 215 U/L (23-300); Potassium 4.7 mmol/L (3.4-5.1); Sodium 137 mmol/L (137-145); Total Protein 7.1 g/dL (6.3-8.2)
[2019-12-29 12:34] LABS: C-Reactive Protein Quant < 0.5 mg/dL (<1.0)
== END ==
PROVIDERS: PCP Family Medicine; Referring Provider Family Medicine; Visit Provider Family Medicine
DX: Z87.19 Personal history of other diseases of the digestive system (principal)
CPT/HCPCS: 36415; 80053; 82150; 83690; 85025; 86140

== ENCOUNTER → 2019-12-31 07:29 | Outpatient (CLI) | payer MEDICARE, OTHER, SELFPAY ==
--- NOTE | 2019-12-31 07:32 | DI.CT.S_ITS ---
PROCEDURE: CT ABDOMEN PELVIS W CON INDICATIONS: abdominal pain, constipation, multiple episodes diverticulit TECHNIQUE: After the administration of oral and intravenous contrast, 5 mm thick sections acquired from the diaphragms to the symphysis. 5 mm thick coronal and sagittal reformats were performed. For radiation dose reduction, the following was used: automated exposure control, adjustment of mA and/or kV according to patient size. COMPARISON: [facility], CT, CT ABDOMEN PELVIS W CON, 10/23/2019, 8:49. FINDINGS: Image quality: Excellent. ABDOMEN: Lung bases: Lung bases are clear. Heart size is normal. Solid organs: Liver is normal in size and enhancement. Gallbladder is unremarkable. Biliary system is non-dilated. Pancreas enhances normally. Spleen is normal in size and enhancement. No adrenal nodules. Kidneys are normal in size and enhancement, without hydronephrosis. Peritoneum and bowel: Stomach, small bowel, and colon loops are normal in caliber and wall thickness. The appendix is thin walled and gas filled. There are scattered sigmoid diverticula. No evidence for diverticulitis. No free fluid or air. Nodes and vessels: No retroperitoneal or mesenteric adenopathy. Aorta and inferior vena cava are normal in caliber. Miscellaneous: No ventral hernias. PELVIS: Genitourinary: Bladder wall thickness is normal. Miscellaneous: No inguinal hernias or adenopathy. Bones: No suspicious bony lesions. No vertebral body compression fractures. IMPRESSION: 1. No acute intra-abdominal findings. Normal appendix. 2. Diverticulosis. No mucosal thickening, pericolonic fat stranding, or other findings to suggest acute diverticulitis. Dictated by: Chelo Childress M.D. on 12/31/2019 at 10:51 Approved by: Chelo Childress M.D. on 12/31/2019 at 11:11
== END ==
PROVIDERS: PCP Family Medicine; Referring Provider Family Medicine; Visit Provider Family Medicine
DX: K57.30 Diverticulosis of large intestine without perforation or abscess without bleeding (principal); R10.9 Unspecified abdominal pain; K59.00 Constipation, unspecified; Z87.19 Personal history of other diseases of the digestive system
CPT/HCPCS: 74177; Q9967

== ENCOUNTER → 2020-02-05 08:09 | Outpatient (CLI) | payer MEDICARE, OTHER, SELFPAY ==
--- NOTE | 2020-02-05 08:10 | DI.MRI.S_ITS ---
PROCEDURE: MR HEAD/BRAIN WO CON INDICATIONS: h/o brain injury, cognitive impairment TECHNIQUE: Noncontrast axial T1 spin echo, axial T2 fast spin echo, sagittal and axial FLAIR, coronal T2 fast spin echo, axial gradient echo, axial diffusion and ADC through the brain. COMPARISON: None. FINDINGS: Image quality: Excellent. CSF Spaces: Basal cisterns are patent. No extra-axial fluid collections. Ventricles are normal in size and shape. Brain: No intracranial masses or hemorrhage. Rodriguez/white matter interface is normal. Brainstem appears normal. Diffusion-weighted images demonstrate no acute ischemic insult. Mild encephalomalacia in the left temporal lobe, in a distribution consistent with posttraumatic change. Age-appropriate volume loss with minimal small vessel ischemic change. Normal intravascular flow voids are present. Skull and face: Calvarium has normal marrow signal. Orbits appear normal. Sinuses: Sinuses and mastoids are clear. IMPRESSION: 1. 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 2. Otherwise negative brain MRI for patient age. No evidence of acute stroke, hemorrhage, or mass. Dictated by: Cahd Quijano M.D. on 02/05/2020 at 19:26 Approved by: Chad Quijano M.D. on 02/05/2020 at 19:27
== END ==
PROVIDERS: PCP Family Medicine; Referring Provider Family Medicine; Visit Provider Family Medicine
DX: G31.84 Mild cognitive impairment of uncertain or unknown etiology (principal); G93.89 Other specified disorders of brain; Z87.820 Personal history of traumatic brain injury
CPT/HCPCS: 70551

== ENCOUNTER → 2020-06-17 09:43 | Outpatient (CLI) | payer MEDICARE, OTHER, SELFPAY ==
[2020-06-17 11:30] LABS: COVID19 -Nasal RAPID Negative (Negative)
== END ==
PROVIDERS: PCP Family Medicine; Visit Provider Nurse Practitioner
DX: Z01.812 Encounter for preprocedural laboratory examination (principal); Z20.828 Contact with and (suspected) exposure to other viral communicable diseases
CPT/HCPCS: 87635; C9803

== ENCOUNTER 2020-07-24 12:37 | Emergency (ER) | payer MEDICARE, OTHER, SELFPAY ==
[2020-07-24] VITALS (8 sets, daily range): BP systolic 149–198; BP diastolic 68–85; PULSE 50–59; RESP 14–19; TEMP 36.2; O2SAT 95–99; BMI 21.1
[2020-07-24] MEDS: ONDANSETRON 4 MG/2 ML INJ IV (13:02)
[2020-07-24 13:30] LABS: Add Manual Diff / Slide Review NO; Basophils Absolute Auto 100 /uL (0-100); Basophils Percent Auto 0.9 % (0-2); Eosinophils Absolute Auto 0 /uL (0-450); Eosinophils Percent Auto 0.3 % (2-4); Hematocrit 39.1 % (36-46); Hemoglobin 13.2 g/dL (12.0-16.0); Lymphocytes Absolute Auto 1300 /uL (1100-4500); Lymphocytes Percent Auto 14.5 % (25-40); Mean Corpuscular HGB Conc 33.7 % (30-36); Mean Corpuscular Hemoglobin 30.3 PG (26-34); Mean Corpuscular Volume 89.7 fL (80-100); Monocytes Absolute Auto 600 /uL (0-900); Neutrophils Absolute Auto 7100 /uL (1500-7000); Neutrophils Percent Auto 77.3 % (50-75); Platelet Count 235 X10^3/uL (150-400); Red Blood Cell Count 4.36 X10^6/uL (4.0-5.2); White Blood Cell Count 9.2 X10^3/uL (4.5-11.0)
[2020-07-24 13:36] LABS: Prothrombin Time 12.1 SECONDS (10.1-12.7)
[2020-07-24 13:39] LABS: PTT Partial Thromboplastin Tim 28 SECONDS (26.4-36.2)
[2020-07-24 13:43] LABS: Alanine Aminotransferase 18 IU/L (<35); Albumin 4.2 g/dL (3.5-5.0); Albumin Globulin Ratio 1.5 (1.0-2.8); Alkaline Phosphatase 56 U/L (38-126); Aspartate Aminotransferase 29 IU/L (14-36); BUN Creatinine Ratio 20.8 (6-22); Blood Urea Nitrogen 15 mg/dL (7-17); Calcium 9.6 mg/dL (8.4-10.2); Carbon Dioxide 30 mmol/L (22-32); Chloride 102 mmol/L (98-107); Estimated Glomerular Filt Rate > 60.0 mL/min (>60); Globulin 2.8 g/dL (1.7-4.1); Glucose 104 mg/dL (80-110); HEMOLYSIS < 15 (0-50); Lipase 44 U/L (23-300); Potassium 3.8 mmol/L (3.4-5.1); Sodium 137 mmol/L (137-145)
--- NOTE | 2020-07-24 14:35 | ED.GENADULT ---
HPI - General Adult General Chief complaint: Abdominal Pain Stated complaint: Got Gut Pain Time Seen by Provider: 07/24/20 14:22 Source: patient Mode of arrival: Ambulatory Limitations: no limitations History of Present Illness HPI narrative: Patient is a 74-year-old female here for evaluation of upper abdominal pain. She states that it feels very similar to her prior history of diverticulitis however she has never had symptoms in this location before. Is having some nausea. No diarrhea. No blood in her stool. No urinary symptoms. Has not tried anything for symptoms prior to arrival. She does state that at 1 point she thought that the pain is radiating up to her left shoulder but this has since improved. Has not tried anything for symptoms prior to arrival Related Data Home Medications Medication Instructions Recorded Confirmed aspirin 81 mg tablet,delayed 81 mg PO DAILY 09/23/18 05/17/20 release psyllium husk PO 09/23/18 05/17/20 vitamin B complex 1 tab PO DAILY 09/23/18 05/17/20 focus factor 4 tab PO DAILY 02/02/20 05/17/20 Previous Rx's Medication Instructions Recorded metronidazole [Flagyl] 500 mg PO TID #21 tab 10/23/19 donepezil 10 mg tablet 10 mg PO BEDTIME #90 tab 03/30/20 trazodone 50 mg tablet 25 mg PO BEDTIME PRN #30 tab 05/03/20 simvastatin 5 mg tablet 5 mg PO HS #90 tab 05/08/20 ciprofloxacin HCl 500 mg PO BID 10 Days #20 tab 07/24/20 metronidazole [Flagyl] 500 mg PO TID 10 Days #30 tab 07/24/20 Allergies Allergy/AdvReac Type Severity Reaction Status Date / Time amoxicillin [AMOXICILLIN] Allergy Mild HIVES Verified 05/17/20 09:34 clavulanic acid Allergy Mild HIVES Verified 05/17/20 09:34 [CLAVULANIC ACID] Penicillins Allergy Hives Verified 05/17/20 09:34 Review of Systems Constitutional Constitutional: Denies fever(s) and Denies headache(s) ENT Ears, Nose, Mouth, and Throat: Denies headache(s) Cardiovascular Cardiovascular: Denies chest pain and Denies dyspnea Respiratory Respiratory: Denies dyspnea Gastrointestinal Gastrointestinal: Reports abdominal pain, Denies change in bowel habits, Reports nausea and Denies vomiting Genitourinary Genitourinary: Denies dysuria Genitourinary: Denies dysuria Musculoskeletal Musculoskeletal: Denies myalgias Comments: Left shoulder pain Integumentary/Breasts Skin/Breast: Denies lesions and Denies rash Neurologic Neurologic: Denies behavioral changes and Denies headache(s) Psychiatric Psychiatric: Denies anxiety and Denies behavioral changes Hematologic/Lymphatic On Anticoagulants: No Allergic/Immunologic Allergic/Immunologic: Denies urticaria Patient History Medical History Anemia (2012) Cataract (~2008) Chicken pox Colon polyps (2010) Diverticular disease (~1999) Grief at loss of child History of 1 spontaneous History of live History of traumatic brain injury Left wrist fracture (2003) Measles Osteopenia (2005) Osteoporosis (2012) PMR (polymyalgia rheumatica) Retinal tear (2011) Seizures, post-traumatic (1979) Traumatic brain injury (1979) Surgical History Anesthesia History of cataract removal with insertion of prosthetic lens (2008) History of surgical removal of ganglion cyst (~1989) Status post colonoscopy (01/20/14) Status post vaginal hysterectomy (~1971) Status post wrist surgery (2003) Family History (Updated 02/19/19 @ 14:12 by Zenaida Brar DO) Brother Age: 76 Multiple myeloma Amyloidosis Cancer High cholesterol ESRD (end stage renal disease) on dialysis Brother Age: 64 Hypertension High cholesterol Child Fibromyalgia Cancer Breast cancer Father Hyperlipidemia Cancer Mesothelioma Grandmother Dementia Mother Age: 97 Alzheimer's dementia Heart disease High cholesterol Osteoporosis Grandfather Alcohol use disorder Family/Other No problems noted. Family/Other Diverticulitis large intestine Daughter Age: 52 Cancer Social History marital status: details: to [facility], lives in [place] household members: spouse lives independently: Yes caregiver/support person: No housing: house Smoking Status: Never smoker Smoking Status: Never smoker alcohol intake frequency: 0-2 drinks per day Alcohol type: wine Substance Use Type: does not use Exam Initial Vital Signs Initial Vital Signs: Vital Signs Temperature 97.1 F L 07/24/20 12:45 Pulse Rate 56 L 07/24/20 12:45 Respiratory Rate 14 07/24/20 12:45 Blood Pressure 198/85 H 07/24/20 12:45 Pulse Oximetry 99 07/24/20 12:45 Const General: cooperative and comfortable Limitations: mental status not altered HENMT Head: normal to inspection and normocephalic Resp Effort & Inspection: normal respiratory effort Auscultation: clear to auscultation bilaterally Cardio Rate: bradycardic Rhythm: regular rhythm GI Inspection: non-distended Palpation: soft and tender (Upper abdomen) Back/Spine/Pelvis Back: No CVA tenderness Skin Lesions: no lesions Rashes: no rashes Neuro General: patient alert and patient awake Cognition: normal cognition Speech: speech normal Extrem General: normal to inspection and capillary refill normal Psych Appearance: grossly normal and well kempt Scores GCS [place] coma scale eye opening: Spontaneous [place] coma scale verbal response: Orientated [place] coma scale motor response: Obey commands [place] coma scale total score: 15 Course Orders Ordered: ED Orders 07/24/20 12:49 EKG-12 Lead Stat 07/24/20 13:18 Complete Blood Count AUTO DIFF Stat Comprehensive Metabolic Panel Stat Lipase Stat Partial Thromboplastin Time Stat Prothrombin Time INR Stat Troponin & CK Cardiac Panel Stat 07/24/20 14:42 CT abdomen pelvis w con Stat Discontinued Medications Sodium Chloride (Normal Saline 0.9%) 1,000 mls @ 1,000 mls/hr IV BOLUS ONE Stop: 07/24/20 15:34 Last Infusion: 07/24/20 16:02 Dose: 0 mls/hr Documented by: Admin: 07/24/20 14:51 Dose: 1,000 mls/hr Documented by: AARON Ondansetron HCl (Ondansetron 4 Mg/2 Ml Inj) 4 mg IV NOW ONE Stop: 07/24/20 12:50 Last Admin: 07/24/20 13:02 Dose: 4 mg Documented by: ROMEL Vital Signs Vital signs: Vital Signs - 8 hr 07/24/20 12:45 07/24/20 13:57 07/24/20 14:00 Temperature 97.1 F L Pulse Rate 56 L 52 L 50 L Respiratory Rate 14 18 Blood Pressure 198/85 H Pulse Oximetry 99 99 97 07/24/20 14:30 07/24/20 14:57 07/24/20 15:00 Temperature Pulse Rate 53 L 53 L 52 L Respiratory Rate 18 18 19 Blood Pressure 186/83 H 153/68 H Pulse Oximetry 98 95 07/24/20 15:30 07/24/20 16:09 Temperature Pulse Rate 59 L 54 L Respiratory Rate 19 Blood Pressure 157/74 H 149/74 H Pulse Oximetry 99 99 Medical Decision Making Lab Data Lab results reviewed: Yes I reviewed the patient's lab results. Result diagrams: 07/24/20 13:18 07/24/20 13:18 Labs: Lab Results 07/24/20 07/24/20 07/24/20 Range/Units 13:18 13:18 13:18 WBC 9.2 (4.5-11.0) X10^3/uL RBC 4.36 (4.0-5.2) X10^6/uL Hgb 13.2 (12.0-16.0) g/dL Hct 39.1 (36-46) % MCV 89.7 (80-100) fL MCH 30.3 (26-34) PG MCHC 33.7 (30-36) % RDW 13.0 (11.6-14.8) % Plt Count 235 (150-400) X10^3/uL Neut % (Auto) 77.3 H (50-75) % Lymph % (Auto) 14.5 L (25-40) % [place] % (Auto) 7.0 (3-14) % Eos % (Auto) 0.3 L (2-4) % Baso % (Auto) 0.9 (0-2) % Neut # (Auto) 7100 H (2280-6975) /uL Lymph # (Auto) 1300 (1209-5652) /uL [place] # (Auto) 600 (0-900) /uL Eos # (Auto) 0 (0-450) /uL Baso # (Auto) 100 (0-100) /uL PT 12.1 (10.1-12.7) SECONDS INR 1.0 (0.9-1.3) APTT 28 (26.4-36.2) SECONDS Sodium 137 (137-145) mmol/L Potassium 3.8 (3.4-5.1) mmol/L Chloride 102 (98-107) mmol/L Carbon Dioxide 30 (22-32) mmol/L BUN 15 (7-17) mg/dL Creatinine 0.72 (0.52-1.04) mg/dL Estimated GFR > 60.0 (>60) mL/min BUN/Creatinine Ratio 20.8 (6-22) Glucose 104 (80-110) mg/dL Calcium 9.6 (8.4-10.2) mg/dL Total Bilirubin 1.0 (0.2-1.3) mg/dL AST 29 (14-36) IU/L ALT 18 (<35) IU/L Alkaline Phosphatase 56 (38-126) U/L Total Creatine Kinase (30-135) U/L CK-MB (CK-2) CK-MB (CK-2) Rel Index Troponin I (0.01-0.034) ng/mL Total Protein 7.0 (6.3-8.2) g/dL Albumin 4.2 (3.5-5.0) g/dL Globulin 2.8 (1.7-4.1) g/dL Albumin/Globulin Ratio 1.5 (1.0-2.8) Lipase 44 (23-300) U/L 07/24/20 Range/Units 13:18 WBC (4.5-11.0) X10^3/uL RBC (4.0-5.2) X10^6/uL Hgb (12.0-16.0) g/dL Hct (36-46) % MCV (80-100) fL MCH (26-34) PG MCHC (30-36) % RDW (11.6-14.8) % Plt Count (150-400) X10^3/uL Neut % (Auto) (50-75) % Lymph % (Auto) (25-40) % [place] % (Auto) (3-14) % Eos % (Auto) (2-4) % Baso % (Auto) (0-2) % Neut # (Auto) (4247-8269) /uL Lymph # (Auto) (5384-2175) /uL [place] # (Auto) (0-900) /uL Eos # (Auto) (0-450) /uL Baso # (Auto) (0-100) /uL PT (10.1-12.7) SECONDS INR (0.9-1.3) APTT (26.4-36.2) SECONDS Sodium (137-145) mmol/L Potassium (3.4-5.1) mmol/L Chloride (98-107) mmol/L Carbon Dioxide (22-32) mmol/L BUN (7-17) mg/dL Creatinine (0.52-1.04) mg/dL Estimated GFR (>60) mL/min BUN/Creatinine Ratio (6-22) Glucose (80-110) mg/dL Calcium (8.4-10.2) mg/dL Total Bilirubin (0.2-1.3) mg/dL AST (14-36) IU/L ALT (<35) IU/L Alkaline Phosphatase (38-126) U/L Total Creatine Kinase 39 (30-135) U/L CK-MB (CK-2) TNP CK-MB (CK-2) Rel Index TNP Troponin I < 0.012 (0.01-0.034) ng/mL Total Protein (6.3-8.2) g/dL Albumin (3.5-5.0) g/dL Globulin (1.7-4.1) g/dL Albumin/Globulin Ratio (1.0-2.8) Lipase (23-300) U/L Urine Dip Bedside Urine Glucose Negative Bedside Urine Bilirubin - Negative Bedside Urine Ketone - Negative Urine Specific [place] 1.015 Bedside Urine Occult Blood - Negative Bedside Urine pH 6.0 Bedside Urine Protein - Negative Bedside Urine Urobilinogen - Negative Bedside Urine Nitrite - Negative Bedside Urine Leukocytes - Negative Esterase Point of care testing: Urine Dip Bedside Urine Glucose Negative Bedside Urine Bilirubin - Negative Bedside Urine Ketone - Negative Urine Specific [place] 1.015 Bedside Urine Occult Blood - Negative Bedside Urine pH 6.0 Bedside Urine Protein - Negative Bedside Urine Urobilinogen - Negative Bedside Urine Nitrite - Negative Bedside Urine Leukocytes - Negative Esterase Imaging Data CT scan - abdomen/pelvis: Radiologist's Impression: [address] [id number] Scan ReportSigned Patient: Vandana Aguirre LMR#: [id number]: [id number]/Sex: 74 / FDate of Service: 07/24/20Loc: EDAccession Number: [id number] Procedure: CT abdomen pelvis w con Ordering Provider: Chacho Gonzalez D.O. PROCEDURE: CT ABDOMEN PELVIS W CON INDICATIONS: Upper abdominal pain history of diverticulitis TECHNIQUE: After the administration of intravenous contrast, 5 mm thick sections acquired from the diaphragm to the symphysis. 5 mm coronal and sagittal reformats were acquired. For radiation dose reduction, the following was used: automated exposure control, adjustment of mA and/or kV according to patient size. COMPARISON: [facility], CT, CT ABDOMEN PELVIS W CON, 10/23/2019, 8:49. [facility], CT, CT ABDOMEN PELVIS W CON, 12/31/2019, 8:21. FINDINGS: Image quality: Excellent. ABDOMEN: Lung bases: Lung bases are clear. Heart size is normal. Solid organs: Liver is normal in size and enhancement. Gallbladder is normal. Biliary system is non dilated. Pancreas enhances normally. Spleen is normal in size and enhancement. No adrenal nodules. Kidneys demonstrate normal size and enhancement, without hydronephrosis. Peritoneum and bowel: There are numerous colonic diverticula. There is focal thickening the distal transverse colon compatible with acute diverticulitis. Appendix is normal. Bowel loops demonstrate normal wall thickness and caliber. No free fluid or air. Nodes and vessels: No retroperitoneal or mesenteric adenopathy by size criteria. Aorta and inferior vena cava are normal in size. Miscellaneous: No ventral hernias. PELVIS: Genitourinary: Bladder wall thickness is normal. Miscellaneous: No inguinal hernias or adenopathy. Bones: No suspicious bony lesions. No vertebral body compression fractures. IMPRESSION: 1. Diverticulosis. There is focal thickening in the distal transverse colon compatible mild diverticulitis. Recommend clinical correlation. If clinically indicated, a follow-up colonoscopy is suggested after adequate treatment as colon cancer could have a similar CT appearance. The result was discussed with Dr. Gonzalez. Dictated by: Daina Riley M.D. on 07/24/2020 at 14:59 Approved by: Daina Riley M.D. on 07/24/2020 at 15:11 ECG Data Attestation: I personally reviewed and interpreted this ECG as follows: Prior ECG tracings: not available for review Interpretation: Sinus bradycardia Ventricular rate of 49 Normal axis Normal QRS Normal QTC No ST T wave changes MDM Narrative Medical decision making narrative: CT report shows a focalized area of diverticulitis corresponding the area she is having discomfort. She is afebrile. She does have a benign exam. No signs of perforation or abscess. She has taken Cipro and Flagyl in the past which has resolved her prior episodes of diverticulitis. These prescriptions were transmitted to the pharmacy of her choice. She was given return precautions and follow-up instructions. She expressed understanding and agreement. Discharge Plan Departure Patient Disposition: Home Clinical Impression: Diverticulosis of colon Instructions: DI for Diverticulitis Activity Restrictions/Additional Instructions: Take the medications as directed. Return to the emergency department for any new or worsening symptoms Prescriptions: New metronidazole [Flagyl] 500 mg tablet 500 mg PO TID 10 Days Qty: 30 RF: 0 ciprofloxacin HCl 500 mg tablet 500 mg PO BID 10 Days Qty: 20 RF: 0 No Action donepezil 10 mg tablet 10 mg PO BEDTIME Qty: 90 RF: 3 trazodone 50 mg tablet 25 mg PO BEDTIME PRN (Reason: sleep maintenence insomnia) Qty: 30 RF: 3 simvastatin 5 mg tablet 5 mg PO HS Qty: 90 RF: 3 focus factor 4 tab PO DAILY RF: 0 metronidazole [Flagyl] 500 mg tablet 500 mg PO TID Qty: 21 RF: 0 aspirin [Adult Low Dose Aspirin] 81 mg tablet,delayed release (DR/EC) 81 mg PO DAILY RF: 0 vitamin B complex [B Complex-Vitamin B12] tablet 1 tab PO DAILY RF: 0 psyllium husk PO RF: 0 Referrals: Zenaida Brar DO [Primary Care Provider] -
--- NOTE | 2020-07-24 14:42 | DI.CT.S_ITS ---
PROCEDURE: CT ABDOMEN PELVIS W CON INDICATIONS: Upper abdominal pain history of diverticulitis TECHNIQUE: After the administration of intravenous contrast, 5 mm thick sections acquired from the diaphragm to the symphysis. 5 mm coronal and sagittal reformats were acquired. For radiation dose reduction, the following was used: automated exposure control, adjustment of mA and/or kV according to patient size. COMPARISON: [facility], CT, CT ABDOMEN PELVIS W CON, 10/23/2019, 8:49. [facility], CT, CT ABDOMEN PELVIS W CON, 12/31/2019, 8:21. FINDINGS: Image quality: Excellent. ABDOMEN: Lung bases: Lung bases are clear. Heart size is normal. Solid organs: Liver is normal in size and enhancement. Gallbladder is normal. Biliary system is non dilated. Pancreas enhances normally. Spleen is normal in size and enhancement. No adrenal nodules. Kidneys demonstrate normal size and enhancement, without hydronephrosis. Peritoneum and bowel: There are numerous colonic diverticula. There is focal thickening the distal transverse colon compatible with acute diverticulitis. Appendix is normal. Bowel loops demonstrate normal wall thickness and caliber. No free fluid or air. Nodes and vessels: No retroperitoneal or mesenteric adenopathy by size criteria. Aorta and inferior vena cava are normal in size. Miscellaneous: No ventral hernias. PELVIS: Genitourinary: Bladder wall thickness is normal. Miscellaneous: No inguinal hernias or adenopathy. Bones: No suspicious bony lesions. No vertebral body compression fractures. IMPRESSION: 1. Diverticulosis. There is focal thickening in the distal transverse colon compatible mild diverticulitis. Recommend clinical correlation. If clinically indicated, a follow-up colonoscopy is suggested after adequate treatment as colon cancer could have a similar CT appearance. The result was discussed with Dr. Gonzalez. Dictated by: Daina Riley M.D. on 07/24/2020 at 14:59 Approved by: Daina Riley M.D. on 07/24/2020 at 15:11
[2020-07-24] MEDS: SODIUM CHLORIDE 0.9% 1,000 ML 1000 ML IV (14:51)
[2020-07-24 15:15] LABS: Creatine Kinase 39 U/L (30-135)
[2020-07-24 15:28] LABS: Troponin I < 0.012 ng/mL (0.01-0.034)
== END 2020-07-24 16:11 | disposition home or self-care (01) ==
PROVIDERS: Emergency Provider Emergency Medicine; PCP Family Medicine
DX: K57.30 Diverticulosis of large intestine without perforation or abscess without bleeding (principal); R11.0 Nausea; Z79.82 Long term (current) use of aspirin; Z87.19 Personal history of other diseases of the digestive system; R00.1 Bradycardia, unspecified
CPT/HCPCS: 36415; 74177; 80053; 81003; 82550; 83690; 84484; 85025; 85610; 85730; 93005; 96361; 96374; 99284; J2405; Q9967

== ENCOUNTER 2020-08-09 08:30 | Outpatient (RCR) | payer MEDICARE, OTHER, SELFPAY ==
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
== END 2020-10-25 13:09 | disposition home or self-care (01) ==
LOC: SP 08:30
PROVIDERS: PCP Family Medicine; Referring Provider Family Medicine; Visit Provider Family Medicine
DX: R41.89 Other symptoms and signs involving cognitive functions and awareness (principal)
CPT/HCPCS: 92523; 96125; 97129; 97130

== ENCOUNTER → 2021-09-13 19:02 | Outpatient (CLI) | payer MEDICARE, OTHER, SELFPAY ==
--- NOTE | 2021-09-13 | DI.MRI.S_ITS ---
PROCEDURE: MR HEAD/BRAIN WO/W CON INDICATIONS: paresthesia of skin TECHNIQUE: Noncontrast axial T1 spin echo, axial T2 fast spin echo, sagittal and axial FLAIR, coronal T2 fast spin echo, axial gradient echo, axial diffusion and ADC through the brain. After the administration of contrast, axial and coronal T1 spin echo with fat saturation through the brain. COMPARISON: MR, MR HEAD/BRAIN WO CON, 02/05/2020, 8:21. FINDINGS: Image quality: Excellent. CSF spaces: Basal cisterns are patent. No extra-axial fluid collections. Ventricles are normal in size and shape. Brain: No midline shift. No intracranial bleeds or masses. No abnormal intracranial enhancement. There is cerebral volume loss for age. There is periventricular white matter chronic small vessel ischemic change. 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 The brainstem appears normal. Diffusion-weighted images demonstrate no acute ischemic insults. No chronic ischemic insults. Normal intravascular flow voids are present. Skull and face: Calvarial marrow is normal in signal. Orbits appear normal. Sinuses: Sinuses and mastoids appear clear. IMPRESSION: 1. No acute intracranial process. 2. Mild to moderate atrophy and chronic microvascular ischemic changes. Dictated by: Marta Tamayo M.D. on 09/14/2021 at 11:18 Approved by: Marta Tamayo M.D. on 09/14/2021 at 11:20
== END ==
PROVIDERS: Family Provider Family Medicine; PCP Family Medicine; Referring Provider Psychiatry & Neurology Neurology; Visit Provider Psychiatry & Neurology Neurology
DX: R20.2 Paresthesia of skin (principal)
CPT/HCPCS: 70553; A9579

== ENCOUNTER → 2021-09-13 19:09 | Outpatient (CLI) | payer MEDICARE, OTHER, SELFPAY | PROVIDERS: Family Provider Family Medicine; PCP Family Medicine; Referring Provider Psychiatry & Neurology Neurology; Visit Provider Psychiatry & Neurology Neurology | DX: R20.2 Paresthesia of skin (principal) ==

== ENCOUNTER → 2021-09-14 08:05 | Outpatient (CLI) | payer MEDICARE, OTHER, SELFPAY ==
[2021-09-14 08:59] LABS: Alanine Aminotransferase 16 IU/L (<35); Albumin Globulin Ratio 1.6 (1.0-2.8); Alkaline Phosphatase 43 U/L (38-126); Aspartate Aminotransferase 27 IU/L (14-36); BUN Creatinine Ratio 25.3 (6-22); Bilirubin Total 0.9 mg/dL (0.2-1.3); Blood Urea Nitrogen 20 mg/dL (7-17); Calcium 9.4 mg/dL (8.4-10.2); Carbon Dioxide 28 mmol/L (22-32); Chloride 104 mmol/L (98-107); Cholesterol 207 mg/dL (140-199); Estimated Glomerular Filt Rate > 60.0 mL/min (>60); Globulin 2.5 g/dL (1.7-4.1); Glucose 98 mg/dL (80-110); HDL Cholesterol 79 mg/dL (40-60); HEMOLYSIS 29 (0-50); LDL Cholesterol Calculated 105 mg/dL (<100); Potassium 3.9 mmol/L (3.4-5.1); Sodium 137 mmol/L (137-145); Total Protein 6.5 g/dL (6.3-8.2); Triglycerides 117 mg/dL (35-150)
[2021-09-14 09:02] LABS: Hemoglobin A1C% w Est Avg Glu 5.5 % (4.0-6.0)
[2021-09-14 09:27] LABS: Thyroid Stimulating Hormone 2.19 uIU/mL (0.47-4.68)
[2021-09-14 09:47] LABS: Vitamin B12 956 pg/mL (239-931)
[2021-09-18 15:46] LABS: Albumin 3.7 g/dL (2.9-4.4); Alpha-1-Globulin 0.2 g/dL (0.0-0.4); Alpha-2-Globulin 0.5 g/dL (0.4-1.0); Gamma Globulin 1.1 g/dL (0.4-1.8); Globulin Total 2.6 g/dL (2.2-3.9); Protein, Total 6.3 g/dL (6.0-8.5)
[2021-09-19 19:50] LABS: Vitamin B1 163.5 nmol/L (66.5-200.0)
== END ==
PROVIDERS: Family Provider Family Medicine; PCP Family Medicine; Referring Provider Psychiatry & Neurology Neurology; Visit Provider Psychiatry & Neurology Neurology
DX: R79.9 Abnormal finding of blood chemistry, unspecified (principal); R20.2 Paresthesia of skin; G31.84 Mild cognitive impairment of uncertain or unknown etiology; E78.5 Hyperlipidemia, unspecified
CPT/HCPCS: 36415; 80053; 80061; 82607; 83036; 84155; 84165; 84207; 84425; 84443

== ENCOUNTER 2022-01-22 08:30 | Outpatient (RCR) | payer MEDICARE, OTHER, SELFPAY ==
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
--- NOTE | 2021-09-10 17:17 | ST.OPTN ---
Visit Care Team Role Provider Type Zenaida Brar DO Attending Provider Physician Family Provider Primary Care Provider Referring Provider Address: [address] [place] [address], [address], [place], [address] BELT PUNCHER Treatment Note BELT PUNCHER Treatment Note Start: 08/06/21 18:18 Freq: Status: Active Protocol: Document 09/10/21 17:55 ROGER (Rec: 09/10/21 17:56 ROGER [id number]) Speech Pathology Treatment Note Session Time Visit Start Time 15:40 Visit Stop Time 16:40 Total Visit Minutes 60 Visit Information Visit Number 10/30 Plan of Care Dates 08/06/21 - 11/03/21 Insurance Information Medicare Setting Treatment Setting Outpatient Care Visit Type Note Type Treatment Note Next Note Type Next Note Type Treatment Note Subjective Observations/Patient Presentation The pt arrived on time accompanied by her who was present throughout for caregiver training. The pt continues to have increasing brain fog with tingling moving into her face. She reported being distracted by both the tingling sensation and her concern around its cause/ effects. She does not experience significant fatigue from physical activity but does from cognitive activity, requiring frequent rest throughout the day, which is not typical for her. The pt sees her Neurologist again tomorrow. Her did report the pt's ability to follow strategies developed at last session to complete projects around the home, and he stated that she has demonstrated increased initiative with activities, which he attributes to increased self-confidence resulting from successful use of strategies. Pt agreed with this assessment. 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 The pt will participate in developing external memory tools to increase her ability to recall information necessary to complete functional tasks with greatest level of independence. 2. The pt will use internal strategies to remember novel information in structured tasks with 80% accuracy. 3. The pt will use word recall strategies to recall words and describe pictures/events in structured tasks with 80% accuracy to improve expressive language skills and confidence. Nursing Home Goals 1. Using external memory tools and internal strategies as needed, the pt will recall information for daily activities in 80% of opportunities to maintain highest level of independence. 2. Using word recall and communication strategies as needed, the pt will successfully communicate her ideas and concerns in 80% of opportunities. 3. Using memory and communication tools as needed, the pt will increase her confidence and participation interacting with others to within functional levels, as measured by pt/spouse report and clinical judgment. Treatment Activities Education and skilled feedback was provided RE potential impact of cognitive activity, pain and increased stress on stamina and ability to focus and perform other cognitive skills. The pt and her spouse were receptive, asking good questions in the conversation. Educated and trained pt in diaphragmatic breathing to reduce stress and promote improved cognitive function at times when she may feel worried or under pressure from others to perform. She returned demonstration and verbalized understanding and agreement with recommendations . Instructions were also provided in writing for carryover. Continued to target executive functions particularly around decision making skills, which the pt reports are reduced. RE decisions around eliminating memorabilia, recommended the pt pack potential items in a box and store them out of sight for a given time, a month for example. If not missing them, eliminate at that time; if missing them, do not eliminate. Pt/spouse reported feeling ready to employ an radiology practitioner assistant to help with ST HEP. Collaborated with the couple regarding those details, ways for this BELT PUNCHER and the radiology practitioner assistant to collaborate on the pt's POC, and activities/strategies to target with the radiology practitioner assistant's help. Assessment Patient Response to Treatment Good Rehab Potential Good Impairments Identified Attention,Cognitive-Linguistic Skills,Expressive Language, Memory - Short Term,Memory - Working Progress Towards Goals Good Progress Assessment of Overall Progress Improving Assessment of Improvement The pt continues to implement targets of therapy with spouse assistance. She is demonstrating progress in initiating and completing tasks at home with strategy use. She was receptive to training in breathing methods to assist in reducing stress that may interfere with cognitive function. Will be good to have the Neurologist's input on possible causes of the pt's increased tingling sensation, and better understanding is anticipated to reduce the stress it causes . The pt is impacted by increased fatigue, which interferes with her ability to participate in social and personal activities as she would like. Anticipate good results with use of a personal counselor to aid in implementing ST strategies in the pt's functional environment. Her continues to be an excellent support to the pt. Reviewed with Patient Goals,Progress Being Made,Home Exercise Program Patient/Caregiver Understanding Excellent Plan Amount of Therapy Recommended 2-3 Months Frequency of Treatment Once a Week Length of Session 60 Minutes Therapeutic Contents Client Education,Cognitive- Linguistic Training,Expressive Language Training,Home Exercise Program,Information Processing Provided Patient/Caregiver Instruction Home Exercise Program,Plan of Care,Questions/Concerns Therapy Recommendations Continue with Current Program
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
== END 2022-01-25 10:28 ==
LOC: SP 08:30
PROVIDERS: Family Provider Family Medicine; PCP Family Medicine; Referring Provider Family Medicine; Visit Provider Family Medicine
DX: Z87.820 Personal history of traumatic brain injury (principal); G31.84 Mild cognitive impairment of uncertain or unknown etiology
CPT/HCPCS: 92507; 96125; 97129; 97130

== ENCOUNTER → 2022-03-14 09:52 | Outpatient (CLI) | payer MEDICARE, OTHER, SELFPAY | PROVIDERS: Family Provider Family Medicine; PCP Family Medicine; Referring Provider Family Medicine; Visit Provider Family Medicine | DX: Z78.0 Asymptomatic menopausal state (principal); M85.88 Other specified disorders of bone density and structure, other site; M81.0 Age-related osteoporosis without current pathological fracture | CPT/HCPCS: 77080 ==

== ENCOUNTER → 2022-05-27 09:52 | Outpatient (CLI) | payer MEDICARE, OTHER, SELFPAY ==
[2022-05-27 16:52] LABS: HEMOLYSIS < 15 (0-50)
[2022-05-27 17:03] LABS: Alanine Aminotransferase 16 IU/L (<35); Albumin 4.1 g/dL (3.5-5.0); Albumin Globulin Ratio 1.5 (1.0-2.8); Alkaline Phosphatase 68 U/L (38-126); Aspartate Aminotransferase 26 IU/L (14-36); BUN Creatinine Ratio 21.7 (6-22); Bilirubin Total 0.6 mg/dL (0.2-1.3); Blood Urea Nitrogen 15 mg/dL (7-17); Calcium 9.3 mg/dL (8.4-10.2); Carbon Dioxide 31 mmol/L (22-32); Chloride 100 mmol/L (98-107); Cholesterol 192 mg/dL (140-199); Estimated Glomerular Filt Rate > 60 mL/min (>60); Globulin 2.7 g/dL (1.7-4.1); Glucose 83 mg/dL (80-110); HDL Cholesterol 72 mg/dL (40-60); LDL Cholesterol Calculated 99 mg/dL (<100); Magnesium 2.3 mg/dL (1.6-2.3); Potassium 3.6 mmol/L (3.4-5.1); Sodium 139 mmol/L (137-145); Total Protein 6.8 g/dL (6.3-8.2); Triglycerides 106 mg/dL (35-150)
[2022-05-27 17:28] LABS: Thyroid Stimulating Hormone 0.579 uIU/mL (0.47-4.68)
[2022-05-28 17:02] LABS: Vitamin B12 > 1000 pg/mL (239-931)
== END ==
PROVIDERS: Family Provider Family Medicine; PCP Internal Medicine; Referring Provider Internal Medicine; Visit Provider Internal Medicine
DX: E78.5 Hyperlipidemia, unspecified (principal); M81.0 Age-related osteoporosis without current pathological fracture; G30.9 Alzheimer's disease, unspecified; G47.00 Insomnia, unspecified
CPT/HCPCS: 36415; 80053; 80061; 82306; 82607; 83735; 84443

== ENCOUNTER → 2022-06-18 14:40 | Outpatient (CLI) | payer MEDICARE, OTHER, SELFPAY ==
[2022-06-18 15:02] LABS: Add Manual Diff / Slide Review NO; Basophils Absolute Auto 0 /uL (0-100); Basophils Percent Auto 0.8 % (0-2); Eosinophils Absolute Auto 0 /uL (0-450); Eosinophils Percent Auto 0.6 % (2-4); Hematocrit 44.4 % (36-46); Hemoglobin 14.9 g/dL (12.0-16.0); Lymphocytes Absolute Auto 1500 /uL (1100-4500); Lymphocytes Percent Auto 29.7 % (25-40); Mean Corpuscular HGB Conc 33.5 % (30-36); Mean Corpuscular Hemoglobin 30.1 PG (26-34); Mean Corpuscular Volume 89.7 fL (80-100); Monocytes Absolute Auto 400 /uL (0-900); Monocytes Percent Auto 7.6 % (3-14); Neutrophils Absolute Auto 3100 /uL (1500-7000); Neutrophils Percent Auto 61.3 % (50-75); Platelet Count 241 X10^3/uL (150-400); Red Blood Cell Count 4.95 X10^6/uL (4.0-5.2); Red Cell Distribution Width 13.2 % (11.6-14.8); White Blood Cell Count 5.1 X10^3/uL (4.5-11.0)
== END ==
PROVIDERS: Family Provider Family Medicine; PCP Internal Medicine; Referring Provider Internal Medicine; Visit Provider Internal Medicine
DX: E78.5 Hyperlipidemia, unspecified (principal); G30.9 Alzheimer's disease, unspecified; G47.00 Insomnia, unspecified; M81.0 Age-related osteoporosis without current pathological fracture
CPT/HCPCS: 36415; 85025

== ENCOUNTER → 2023-07-15 11:50 | Outpatient (CLI) | payer MEDICARE, OTHER, SELFPAY ==
--- NOTE | 2023-07-15 11:52 | DI.US.S_ITS ---
PROCEDURE: US CAROTID DOPPLER BI INDICATIONS: Other specified symptoms circulatory system TECHNIQUE: Color and pulse Doppler interrogation was performed of both carotid systems, with image documentation and velocity measurements. COMPARISON: None. FINDINGS: Stenosis calculations are based on SRU (Society of Radiologists in Ultrasound) criteria. The flow velocities and the arterial waveforms are normal within both carotid arterial systems. The estimated degree of internal carotid artery stenosis is less than 50%. Antegrade flow is confirmed within both vertebral arteries. IMPRESSION: No hemodynamically significant stenosis is seen. Dictated by: Bart Booker M.D. on 07/15/2023 at 11:54 Approved by: Bart Booker M.D. on 07/15/2023 at 11:55
== END ==
PROVIDERS: Family Provider Family Medicine; PCP Internal Medicine; Referring Provider Internal Medicine; Visit Provider Internal Medicine
DX: R09.89 Other specified symptoms and signs involving the circulatory and respiratory systems (principal)
CPT/HCPCS: 93880

== ENCOUNTER 2024-01-24 14:59 | Emergency (ER) | payer MEDICARE, OTHER, SELFPAY ==
[2024-01-24 15:04] VITALS: BP 190/85; PULSE 58; RESP 18; TEMP 36.6; O2SAT 97; BMI 20.2
--- NOTE | 2024-01-24 15:08 | DI.RAD.S_ITS ---
PROCEDURE: XR HAND RT MIN 3V INDICATIONS: fall/pain TECHNIQUE: 3 views of the hand(s) acquired. COMPARISON: [facility], CR, XR ELBOW RT MIN 3V, 01/24/2024, 15:09. FINDINGS: Bones: No fractures or dislocations. Multifocal degenerative changes are seen, including involving the their filled of the thumb. Carpal bones are normally aligned. No suspicious bony lesions. Soft tissues: No suspicious soft tissue calcifications. IMPRESSION: No dayo displaced plain film abnormality is seen. If there is point tenderness (or other clinical suspicion for a fracture not seen on these images) please consider a dedicated CT for further evaluation. Dictated by: Bart Booker M.D. on 01/24/2024 at 14:59 Approved by: Bart Booker M.D. on 01/24/2024 at 14:59
--- NOTE | 2024-01-24 15:09 | DI.RAD.S_ITS ---
PROCEDURE: XR ELBOW RT MIN 3V INDICATIONS: fall/pain TECHNIQUE: 3 views of the elbow were acquired. COMPARISON: [facility], CR, XR HAND RT MIN 3V, 01/24/2024, 15:09. FINDINGS: Bones: There is a minimally impacted, minimally displaced fracture of the radial head and neck. Soft tissues: There is a moderate joint effusion. Generalized soft tissue swelling is seen. IMPRESSION: Radial head and neck fracture, with associated soft tissue swelling and joint effusion. Dictated by: Bart Booker M.D. on 01/24/2024 at 14:59 Approved by: Bart Booker M.D. on 01/24/2024 at 15:00
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
[2024-01-24 16:39] VITALS: BP 178/80; PULSE 77; RESP 18; O2SAT 97
== END 2024-01-24 17:05 | disposition home or self-care (01) ==
PROVIDERS: Emergency Provider Physician Assistant Medical; Family Provider Family Medicine; PCP Internal Medicine
DX: S52.121A Displaced fracture of head of right radius, initial encounter for closed fracture (principal); V18.0XXA Pedal cycle driver injured in noncollision transport accident in nontraffic accident, initial encounter
CPT/HCPCS: 29105; 73080; 73130; 99281; 99283

== ENCOUNTER → 2024-12-29 12:49 | Outpatient (CLI) | payer MEDICARE, OTHER, SELFPAY ==
[2024-12-29 14:30] LABS: Hemoglobin A1C% w Est Avg Glu 5.3 % (4.0-6.0)
[2024-12-29 14:50] LABS: Cholesterol 196 mg/dL (140-199); HDL Cholesterol 82 mg/dL (40-60); Triglycerides 92 mg/dL (35-150)
[2024-12-29 15:21] LABS: Thyroid Stimulating Hormone 1.15 uIU/mL (0.47-4.68)
[2024-12-29 15:40] LABS: Vitamin B12 909 pg/mL (239-931)
== END ==
PROVIDERS: Family Provider Family Medicine; PCP Internal Medicine
DX: G31.84 Mild cognitive impairment of uncertain or unknown etiology (principal)
CPT/HCPCS: 36415; 80061; 82607; 83036; 83921; 84155; 84165; 84207; 84425; 84443